=== PATIENT | male | born 1950 | race Caucasian/White ===

== ENCOUNTER 2020-01-24 11:01 | Day surgery (SDC) | payer MEDICARE ==
[2020-01-20 11:05] VITALS: BMI 22.4
[~2020-01-24 11:01] MED LIST: ALPRAZolam 0.25 MG TAB PO PRN; ALPRAZolam 0.5 MG TAB PO PRN; ASPIRIN 325 MG TAB PO STA; ATORVASTATIN 80 MG TAB PO STA; NITROGLYCERIN SL TABS 0.4 MG TAB SUBLINGUAL PRN; SODIUM CHLORIDE 0.9% 1,000 ML in EMPTY BAG 1 BAG IV ONE
[2020-01-24] MEDS ORDERED: IV FLUID CONTINUATION 1,000 ML IV ONE (11:35)
[2020-01-24] MEDS ORDERED: VERAPAMIL 2.5 MG/ML 2 ML AMP ONE (11:43)
[2020-01-24] MEDS ORDERED: LIDOCAINE 1% INJ 10MG/ML (20 ML MDV) ONE (11:43)
[2020-01-24] MEDS ORDERED: HEPARIN SODIUM 1,000 UN/ML (10ML VL) ONE (11:43)
[2020-01-24 11:45] LABS: Basophils % (A) 0 %; Eosinophils # (A) 0.1 k/uL (0-0.7); Eosinophils % (A) 1 %; HCT 33.9 % (39.0-53.0); HGB 11.3 gm/dL (13.0-17.5); Lymphocytes # (A) 0.7 k/uL (1.0-4.8); Lymphocytes % (A) 10 %; MCH 33.7 pg (25.0-35.0); MCHC 33.4 g/dL (31.0-37.0); MCV 100.8 fL (80.0-100.0); Macrocytosis Slight; Mean Platelet Volume 8.5; Monocytes # (A) 0.3 k/uL (0-1.0); Monocytes % (A) 4 %; Neutrophils # (A) 6.6 k/uL (1.3-7.7); Neutrophils % (A) 84 %; Platelet Count 270 k/uL (150-450); RBC 3.37 m/uL (4.30-5.90); RDW 14.1 % (11.5-15.5); WBC 7.8 k/uL (3.8-10.6)
[2020-01-24 11:54] LABS: Calcium 9.8 mg/dL (8.4-10.2); Potassium 4.2 mmol/L (3.5-5.1)
[2020-01-24] MEDS ORDERED: fentaNYL (PF) 50 MCG/ML 2 ML AMP ONE (11:56)
[2020-01-24] MEDS ORDERED: fentaNYL (PF) 50 MCG/ML 2 ML AMP IVP ONE (11:57)
[2020-01-24] MEDS ORDERED: MIDAZOLAM 2 MG/2 ML VIAL IVP ONE (11:57)
[2020-01-24] MEDS ORDERED: LIDOCAINE 1% INJ 10MG/ML (20 ML MDV) SQ ONE (11:58)
[2020-01-24] MEDS ORDERED: VERAPAMIL SYRINGE (5 MG/10 ML) INTRAARTER ONE (12:01)
[2020-01-24] MEDS ORDERED: HEPARIN SODIUM 1,000 UN/ML (10ML VL) IV ONE (12:03)
[2020-01-24] MEDS ORDERED: IOPAMIDOL-370 50ML BTL INJ ONE (12:37)
[2020-01-24] MEDS ORDERED: IOPAMIDOL-370 125ML BTL INJ ONE (12:37)
[2020-01-24] MEDS ORDERED: RX INFO: IV CONTRAST WAS GIVEN 1 EACH MISC MISCELLANE PRN (12:54)
--- NOTE | 2020-01-24 13:14 | P.CARDCATH ---
Date of Procedure: 01/24/20 Description of Procedure: PROCEDURES PERFORMED: Left heart catheterization, left ventriculogram, bilateral coronary angiography INDICATION: Class III angina HISTORY: Patient is a 69-year-old male with history of hyperlipidemia, hypertension who presents for evaluation of chest pain. Patient has been having worsening consistent chest pain with any sort of exertion or the past 3-4 months which he believes is gradually getting worse. He has a history of severe hyperlipidemia with LDL levels in the 700 800 range. He has attributed this to his keto diet in the past. We initially started antianginal medications however he had persistent chest pain with any sort of activity and therefore wanted to undergo heart catheterization rather than stress testing. CONSENT:I have discussed the risks, benefits and alternative therapies for the above-mentioned procedure and for both sedation/analgesia as well as necessary blood product administration, if indicated, as they pertain to this patient. The patient has indicated understanding and acceptance of the risks and procedures discussed. PROCEDURE: After the risks, benefits and alternatives of the above mentioned procedure explained in detail with the patient, informed consent was obtained. Patient was taken to the catheterization lab and prepped and draped in usual fashion. 1% lidocaine was used to anesthetize the right radial artery. A 6- Guamanian sheath was placed in the right radial artery using modified Seldinger technique. Left coronary angiography was performed with a 6-Guamanian CLS 3.0 guide catheter as the FL3.5 and FL 3.0 would not engage properly. Right coronary angiography was performed with a 5-Guamanian JR5 catheter in various views. A 5-Guamanian pigtail catheter was inserted into the left ventricle and pressure measurements were obtained. Left ventriculography was performed in the BAINS projection with a power injection. The right radial sheath was removed and a TR band was placed with hemostasis achieved. The patient tolerated the procedure well. Patient was transported back to the post catheterization holding area in stable condition. Conscious Sedation: Patient was monitored under the direct supervision of vision of myself for conscious sedation using 1 mg Versed and 50 mcg fentanyl for a total duration of 48 minutes HEMODYNAMICS: Ao: 110/56 SELECTIVE CORONARY ARTERIOGRAPHY: LEFT MAIN: The left main is a large caliber vessel which bifurcates into the LAD and circumflex. There is a distal left main 80% stenosis. LEFT ANTERIOR DESCENDING CORONARY ARTERY: LAD is a large caliber vessel which reaches the apex and shares coverage of the apex with the PDA. There is a mid LAD 30% stenosis and a distal 40-50% stenosis. Diagonal 1 is small caliber with diffuse proximal and mid 70% stenosis and diagonal 2 is small caliber with proximal 60% stenosis and mid 70% stenosis. There are left to right collaterals to the PDA. LEFT CIRCUMFLEX CORONARY ARTERY: Left circumflex is a moderate caliber vessel with mid 30% stenosis and gives off a moderate caliber OM1. RIGHT CORONARY ARTERY: The right coronary artery is a large caliber vessel which gives off a PDA and PLV branch and is the dominant vessel. There are tandem 90% proximal 90% mid and 80% distal RCA stenosis. There is a 30% origin PDA cherise nosis however otherwise good target. There is competitive flow in the distal PDA from collaterals. LEFT VENTRICULOGRAPHY: Left ventricular ejection fraction is 45% with global hypokinesis with inferior wall worse hypokinesis. There is no significant mitral regurgitation and no significant gradient with pullback across the aortic valve. FINAL IMPRESSION: 1. Multivessel CAD as described above with 80% left main, 70% small caliber diagonal 1, 70% small caliber diagonal 2, tandem 90% RCA stenoses. 2. Ischemic cardiomyopathy with EF 45% with worsened inferior hypokinesis. 3. Normal left sided pressures PLAN: 1. Aggressive risk factor modification per most recent ACC/AHA guidelines. 2. Discussed with cardiothoracic surgery who will evaluate patient for CABG. Hold Plavix and cardiothoracic recommendations appreciated.
[2020-01-24] MEDS ORDERED: METOPROLOL TARTRATE 25 MG TAB PO STA (14:32)
[2020-01-24] MEDS ORDERED: ISOSORBIDE MONONITRATE ER 30 MG TAB.ER.24H PO STA (14:32)
[2020-01-24] MEDS ORDERED: MD COMMUNICATION TO PHARMACY 1 EACH MISC PO ONE (14:41)
[2020-01-24] MEDS ORDERED: NITROGLYCERIN SL TABS 0.4 MG TAB SUBLINGUAL PRN (14:54)
--- NOTE | 2020-01-24 15:22 | P.GSCN ---
History of Present Illness Consult date: 01/24/20 Reason for Consult: Triple-vessel coronary artery disease with left main disease Requesting physician: Torrey Erickson History of present illness: This is a 69-year-old gentleman who follows on an outpatient basis with nurse practitioner Myriam Hancock. He has a previous medical history of hypertension, significant hyperlipidemia, previous tobacco dependence, and family history of coronary artery disease with father having had coronary artery bypass surgery. He has been experiencing exertional chest pain without shortness of breath over the previous couple of months. He states his activity tolerance has decreased significantly due to chest pain and he is requiring sublingual nitroglycerin several times daily. He presented to [facility] and was seen by Dr. Erickson, he was started on antianginal medication but continued to have chest pain. The patient refused to have stress testing completed and wished to proceed straight to heart catheterization which was completed today. Heart catheterization revealed distal left main stenosis 80%, mid LAD stenosis 30%, distal LAD 40-50% stenosis 70% stenosis in the first diagonal with 60% stenosis in the second diagonal coronary artery with left to right collaterals to the PDA, proximal and mid RCA stenosis 90% with distal RCA stenosis 80%. Left ventriculogram was completed as well reporting ejection fraction 45% with global hypokinesis. Due to these findings consultation was placed to Dr. Beyer from cardiothoracic surgery. Review of Systems Review of systems was completed and was negative except as noted - Constitutional Reports as per HPI, Reports fatigue - Cardiovascular Reports as per HPI, Reports chest pain, Reports decreased exercise tolerance Past Medical History Past Medical History: Coronary Artery Disease (CAD), Chest Pain / Angina, Hyperlipidemia, Hypertension Additional Past Medical History / Comment(s): HX ELEVATED BLOOD SUGAR- WATCHES DIET, STATES "TIGHTNESS" RIGHT NECK, STIFF BACK, NUMBNESS ABOVE RIGHT KNEE., STATES POSSIBLE ANEMIA., LIGHTHEADED "ALL THE TIME", SEE CARDIOLOGY H & P. History of Any Multi-Drug Resistant Organisms: None Reported Additional Past Surgical History / Comment(s): LUMP ON CHEST REMOVED ., COL ONOSCOPY. Past Anesthesia/Blood Transfusion Reactions: No Reported Reaction, Motion Sickness Past Psychological History: No Psychological Hx Reported Smoking Status: Former smoker Past Alcohol Use History: None Reported Additional Past Alcohol Use History / Comment(s): QUIT SMOKING 6 YRS AGO (2013), SMOKED 1 PPD, STARTED SMOKING A TEENAGER. Past Drug Use History: None Reported - Past Family History Mother Family Medical History: Cancer Additional Family Medical History / Comment(s): SKIN CANCER Father Family Medical History: Coronary Artery Disease (CAD) Additional Family Medical History / Comment(s): CABG Sister(s) Family Medical History: Cancer Additional Family Medical History / Comment(s): COLON CANCER Medications and Allergies Home Medications Medication Instructions Recorded Confirmed Type Aspirin [Adult Low Dose Aspirin EC] 81 mg PO HS 01/20/20 01/24/20 History Atorvastatin [Lipitor] 40 mg PO HS 01/20/20 01/24/20 History Calcium 1 dose PO DIRECTED 01/20/20 History Cholecalciferol [Vitamin D3 (25 2,000 unit PO DIRECTED 01/20/20 01/20/20 History Mcg = 1000 Iu)] Ezetimibe [Zetia] 10 mg PO HS 01/20/20 01/24/20 History Isosorbide Mononitrate ER [Imdur] 30 mg PO BID 01/20/20 01/24/20 History Magnesium 1 dose PO DIRECTED 01/20/20 History Metoprolol Tartrate [Lopressor] 25 mg PO BID 01/20/20 01/24/20 History Nitroglycerin Sl Tabs [Nitrostat] 0.4 mg SUBLINGUAL Q5M PRN 01/20/20 01/24/20 History Vitamin C 1 dose PO DIRECTED 01/20/20 History lisinopriL [Zestril] 20 mg PO HS 01/20/20 01/24/20 History Allergies Allergy/AdvReac Type Severity Reaction Status Date / Time No Known Allergies Allergy Verified 01/24/20 11:49 Surgical - Exam Vital Signs Temp Pulse Resp BP Pulse Ox 98 F 55 L 18 153/70 98 01/24/20 11:40 01/24/20 11:40 01/24/20 11:40 01/24/20 11:40 01/24/20 11:40 - General well developed, well nourished, moderate pain - Eyes normal ocular movement - Neck no masses, no bruits, trachea midline - Respiratory Lungs sounds diminished bilaterally. Respirations even, nonlabored. Currently on room air with oxygen saturation 96%. No chest wall deformities. No clubbing or cyanosis present. - Cardiovascular S1, S2 present. Regular rate and rhythm, sinus rhythm on telemetry. Palpable peripheral pulses bilaterally. No edema present. No calf pain or tenderness noted. Positive varicosities noted to bilateral lower extremities. Left radial Agus's test less than 8 seconds. - Abdomen Abdomen: soft, non tender, bowel sounds - Genitourinary Deferred - Rectum Deferred - Integumentary no rash, no growths, no abnormal pigmentation - Neurologic normal coordination, normal sensation - Musculoskeletal normal posture - Psychiatric oriented to time, oriented to person, oriented to place, speech is normal Results - Labs 01/24/20 11:35 01/24/20 11:35 Abnormal Lab Results - Last 24 Hours (Table) 01/24/20 01/24/20 Range/Units 11:35 11:35 RBC 3.37 L (4.30-5.90) m/uL Hgb 11.3 L (13.0-17.5) gm/dL Hct 33.9 L (39.0-53.0) % MCV 100.8 H (80.0-100.0) fL Lymphocytes # 0.7 L (1.0-4.8) k/uL Sodium 128 L (137-145) mmol/L Chloride 96 L (98-107) mmol/L BUN 25 H (9-20) mg/dL Glucose 125 H (74-99) mg/dL Diabetes panel 01/24/20 Range/Units 11:35 Sodium 128 L (137-145) mmol/L Potassium 4.2 (3.5-5.1) mmol/L Chloride 96 L (98-107) mmol/L Carbon Dioxide 26 (22-30) mmol/L BUN 25 H (9-20) mg/dL Creatinine 1.10 (0.66-1.25) mg/dL Glucose 125 H (74-99) mg/dL Calcium 9.8 (8.4-10.2) mg/dL Calcium panel 01/24/20 Range/Units 11:35 Calcium 9.8 (8.4-10.2) mg/dL Pituitary panel 01/24/20 Range/Units 11:35 Sodium 128 L (137-145) mmol/L Potassium 4.2 (3.5-5.1) mmol/L Chloride 96 L (98-107) mmol/L Carbon Dioxide 26 (22-30) mmol/L BUN 25 H (9-20) mg/dL Creatinine 1.10 (0.66-1.25) mg/dL Glucose 125 H (74-99) mg/dL Calcium 9.8 (8.4-10.2) mg/dL Adrenal panel 01/24/20 Range/Units 11:35 Sodium 128 L (137-145) mmol/L Potassium 4.2 (3.5-5.1) mmol/L Chloride 96 L (98-107) mmol/L Carbon Dioxide 26 (22-30) mmol/L BUN 25 H (9-20) mg/dL Creatinine 1.10 (0.66-1.25) mg/dL Glucose 125 H (74-99) mg/dL Calcium 9.8 (8.4-10.2) mg/dL - Imaging Additional studies: Heart catheterization films reviewed with Dr. Beyer Assessment and Plan Assessment: 1. Multi-vessel coronary artery disease with left main disease 2. Hypertension 3. Hyperlipidemia 4. Previous tobacco dependence 5. Family history of coronary artery disease Plan: The patient was seen and examined in the extended stay area with Dr. Beyer. Chart/diagnostics were reviewed. The usual perioperative course of open heart surgery was discussed in detail with the patient, risks and benefits were reviewed, all questions were answered, and the patient did consent to open heart surgery. During our interview the patient stated he was having chest pain, he was asking for sublingual nitroglycerin. Due to his active chest pain and his own admittance that he requires multiple doses of sublingual nitroglycerin daily our recommendation was for the patient to stay inpatient for surgery. He did have Plavix this morning and would need 5-7 days off Plavix prior to surgery to allow for Plavix metabolism. Preoperative testing was initiated. Our plan is for myocardial revascularization with left internal mammary artery, endovascular vein harvest, possible left radial artery harvest, and intraoperative transesophageal echocardiogram to be completed by Dr. Beyer on 01/30/2020 pending the outcome of preoperative testing. Once testing has been completed we will calculate an STS risk score and discuss with the patient. We recommend continuing aspirin, statin, beta kia therapy. Continue to hold Plavix. Medical management of other comorbidities per cardiology, primary care service. More recommendations to follow. Thank you Dr. Erickson for this consult. We look forward to working with you in the care of your patient Time with Patient: Greater than 30
--- NOTE | 2020-01-24 15:34 | XR ---
EXAMINATION TYPE: XR chest 2V DATE OF EXAM: 01/24/2020 COMPARISON: None INDICATION: Preop cardiac surgery TECHNIQUE: Frontal and lateral views of the chest are obtained. FINDINGS: The heart size is normal. The pulmonary vasculature is normal. The lungs are clear. Pectus excavatum of the inferior sternum and xiphoid process may be present. IMPRESSION: 1. No acute pulmonary process. 2. Pectus excavatum of the inferior sternal
--- NOTE | 2020-01-24 16:42 | US ---
EXAMINATION TYPE: US carotid duplex BILAT DATE OF EXAM: 01/24/2020 COMPARISON: NONE CLINICAL HISTORY: Pre-Op Cardiac Surgery . No HTN per patient EXAM MEASUREMENTS: RIGHT: Peak Systolic Velocity (PSV) cm/sec ----- Right CCA: 44.4 ----- Right ICA: 121.0 ----- Right ECA: 151.6 ICA/CCA ratio: 2.7 RIGHT: End Diastole cm/sec ----- Right CCA: 10.4 ----- Right ICA: 48.3 ----- Right ECA: 13.6 LEFT: Peak Systolic Velocity (PSV) cm/sec ----- Left CCA: 80.1 ----- Left ICA: 83.4 ----- Left ECA: 116.1 ICA/CCA ratio: 1.0 LEFT: End Diastole cm/sec ----- Left CCA: 14.1 ----- Left ICA: 38.4 ----- Left ECA: 7.9 VERTEBRALS (direction of flow): Right Vertebral: Antegrade Left Vertebral: Antegrade Rhythm: Normal Bilateral wall thickening. This appears greater on the left. Elevated right ECA velocity. Right ECA stenosis. Small amount of plaque seen in bilateral bulbs. IMPRESSION: Atheromatous plaquing without significant flow-limiting stenosis. Criteria for Assigning % of Stenosis / Diameter reduction (Estimation based on the indirect measurements of the internal carotid artery velocities (ICA PSV). 1. Normal (no stenosis)=ICA PSV < 125 cm/s: ratio < 2.0: ICA EDV<40 cm/s. 2. Less than 50% stenosis=ICA PSV < 125 cm/s: ratio < 2.0: ICA EDV<40 cm/s. 3. 50 to 69% stenosis=ICA PSV of 125 to 230 cm/s: ration 2.0 ? 4.0: ICA EDV 40-100 cm/s. 4. Greater than 70% stenosis to near occlusion= ICA PSV > 230 cm/s: ratio > 4.0: ICA EDV > 100 cm/s. 5. Near occlusion= ICA PSV velocities may be low or undetectable: variable ratio and ICA EDV. 6. Total occlusion=unable to detect flow.
[2020-01-24] MEDS: SODIUM CHLORIDE 0.9% 1,000 ML IV SCH (18:14)
[2020-01-24] MEDS ORDERED: EZETIMIBE 10 MG TAB PO SCH (21:00)
[2020-01-24] MEDS ORDERED: ASPIRIN 81 MG PO SCH (21:00)
[2020-01-24] MEDS ORDERED: lisinopriL 20 MG TAB PO SCH (21:00)
[2020-01-24] MEDS ORDERED: ATORVASTATIN 40 MG TAB PO SCH (21:00)
[2020-01-24] MEDS: ISOSORBIDE MONONITRATE ER 30 MG TAB.ER.24H PO SCH (21:29)
[2020-01-24] MEDS: METOPROLOL TARTRATE 25 MG TAB PO SCH (21:30)
[2020-01-24 22:04] VITALS: RESP 18
[2020-01-25] MEDS: METOPROLOL TARTRATE 25 MG TAB PO SCH ×2 (00:35→08:21)
[2020-01-25] MEDS: SODIUM CHLORIDE 0.9% 1,000 ML IV SCH ×2 (04:11→12:07)
[2020-01-25 06:14] LABS: Appearance,Urine Cloudy (Clear); Bacteria,Urine Rare /hpf; Bilirubin,Urine Negative (Negative); Blood,Urine Negative (Negative); Color,Urine Yellow; Glucose,Urine (UA) Negative (Negative); Ketones,Urine Negative (Negative); Leukocyte Esterase,Urine Large (Negative); Mucus,Urine Rare /hpf; Nitrite,Urine Positive (Negative); Protein,Urine Negative (Negative); RBC,Urine 5 /hpf (0-5); Specific Gravity,Urine 1.021 (1.001-1.035); Squamous Epithelial Cell,Urine <1 /hpf (0-4); Urobilinogen,Urine <2.0 mg/dL (<2.0); WBC,Urine 97 /hpf (0-5)
[2020-01-25 06:51] LABS: Partial Thromboplastin Time 23.1 sec (22.0-30.0); Prothrombin Time 10.1 sec (9.0-12.0)
[2020-01-25 06:57] LABS: Basophils % (A) 0 %; Eosinophils # (A) 0.1 k/uL (0-0.7); Eosinophils % (A) 1 %; HCT 27.4 % (39.0-53.0); Lymphocytes % (A) 15 %; MCH 33.6 pg (25.0-35.0); MCHC 32.8 g/dL (31.0-37.0); MCV 102.2 fL (80.0-100.0); Macrocytosis Slight; Mean Platelet Volume 8.6; Monocytes # (A) 0.4 k/uL (0-1.0); Monocytes % (A) 5 %; Neutrophils # (A) 5.4 k/uL (1.3-7.7); Neutrophils % (A) 78 %; Platelet Count 211 k/uL (150-450); RBC 2.68 m/uL (4.30-5.90); RDW 14.3 % (11.5-15.5); WBC 6.9 k/uL (3.8-10.6)
[2020-01-25 06:58] LABS: Albumin 3.5 g/dL (3.5-5.0); Calcium 8.9 mg/dL (8.4-10.2); Magnesium 1.9 mg/dL (1.6-2.3); Potassium 4.4 mmol/L (3.5-5.1); Total Bilirubin 0.4 mg/dL (0.2-1.3); Total Protein 5.9 g/dL (6.3-8.2)
[2020-01-25] MEDS: ISOSORBIDE MONONITRATE ER 30 MG TAB.ER.24H PO SCH (08:20)
[2020-01-25 08:56] LABS: Glucose,Whole Blood 129 mg/dL (75-99)
[2020-01-25] MEDS ORDERED: CHOLECALCIFEROL 1,000 UNIT TAB PO SCH (09:00)
--- NOTE | 2020-01-25 09:37 | CT ---
EXAMINATION TYPE: CT brain wo con DATE OF EXAM: 01/25/2020 COMPARISON: None HISTORY: difficulty with speech CT DLP: 1108.[address] of the brain was performed. The ventricles, basal cisterns and sulci overlying the cerebral convexities demonstrate mild enlargem ent. There is no evidence for intracranial hemorrhage or sulcal effacement. There is decreased attenuation about the periventricular white matter and deep white matter of both c erebral hemispheres, compatible with chronic small vessel ischemia. Differential diagnosis does inclu de demyelination. No mass effects are seen.No midline shift. Osseous calvarium is intact. If symptoms persist consider MRI. IMPRESSION: 1. Age related atrophic and chronic small vessel ischemic change without acute intracranial process s een at this time.
--- NOTE | 2020-01-25 10:02 | CT ---
EXAMINATION TYPE: CODE STROKE: CTA head neck DATE OF EXAM: 01/25/2020 HISTORY: Difficulty speaking COMPARISON: CT DLP: 484.9 mGycm. Automated Exposure Control for Dose Reduction was Utilized. TECHNIQUE: CTA scan of the neck is performed with IV Contrast, patient injected with 65 mL of Isovue 370, axial images are obtained, coronal and sagittal reformatted images are reviewed. Three-D recons tructed images are created on an independent workstation and reviewed. FINDINGS: Carotid/Vascular Structures: Transverse aorta, left and right common carotid, innominate, left and ri ght subclavian arteries are patent. Left and right vertebral arteries are patent. There is no evident embolus, dissection, or aneurysm. No significant stenosis by NASCET criteria within the proximal int ernal carotid arteries. Within the petrous portion of the internal carotid artery on the left there i s atherosclerotic narrowing. Other: Degenerative disc changes and facet arthropathy noted in the visualized cervical spine. IMPRESSION: Cerebral vascular disease. No evident aneurysm, dissection, or aneurysm..
[2020-01-25 10:36] LABS: Hepatitis A Antibody IgM Non-Reactive (Non-Reactive); Hepatitis B Core IgM Non-Reactive (Non-Reactive); Hepatitis B Surface Antigen Non-Reactive (Non-Reactive); Hepatitis C IgG Antibody Non-Reactive (Non-Reactive)
[2020-01-25 10:42] LABS: Partial Thromboplastin Time 22.4 sec (22.0-30.0); Prothrombin Time 10.1 sec (9.0-12.0)
--- NOTE | 2020-01-25 11:27 | P.CNNES ---
History of Present Illness Consult date: 01/25/20 Requesting physician: Jeffrey Bello Reason for Consult: Stroke for aphasia History of Present Illness: this is a 69-year-old left-handed gentleman with medical history of diabetes type 2, coronary artery disease, significant hyperlipidemia, hypertension, X tobacco use who in [facility] since 01/24/2020 for chest pain. History was obtained from medical records. He has been having exertional chest chest pain without as shortness of breath over the last couple months. His activity tolerances decreased significantly due to the chest pain and requiring sublingual nitroglycerin several times a day. He follows up with the cardiology team and sees a nurse practitioner Myriam Hancock. the patient refused a stress test and he wished to proceed with a heart catheterization was completed on 01/24/2020 around [facility] Per Dr. Torrey Erickson who is a pharmacy general manager he stated that the patient was doing well yesterday just prior to catherization and there was no complication. at and the catheterization showed multivessel coronary artery disease. He stated the patient was verbalizing well and he had that no focal deficits to his knowledge. during the procedure the patient received heparin drip. cardiology team or planning of the having the patient getting a CABG in a couple days. Today around 8:30am on 01/25/2020 the patient was having a aphasia so stroke old was activated. Per the patient nurse she's not sure when his last normal state and possibly could be on 01/24/[address] of the head was done and was reported as age-related atrophic and small vessel ischemic change without acute intracranial process seen at this time. I personally reviewed the CT of the head and there is no acute ischemia, hemorrhage or any the significant encephalomalacia that was appreciable. CT angiogram of the head and neck was done and a showed cerebrovascular disease. No significant aneurysm, dissection or embolus. No significant stenosis by facet criteria within the proximal internal carotid arteries. Within the petrous portion of the internal carotid artery of the left there is atherosclerotic narrowing. Initial NIH by the nurse was felt to be 3. 2 for aphasia and 1 for dysarthria. patient was not an IV TPA candidate since the he recently received heparin drip as well as he is outside the window since last normal states possibly was on 01/24/2020 around [facility]. As well as no endovascular intervention for stroke attending. Of note during the hospital he also had carotid duplex on 01/24/2020 and it was reported as atheromatous plaquing without significant flow limiting stenosis. per cardiology team the patient was on aspirin 81 mg as well as Plavix 75 mg and the patient was on the Zetia 10 mg daily. Plavix was stopped by the cardiology team since they felt that he does not need it and that the CABG is needed. There during the day the patient sister was at bedside and she stated that the patient the has been on ketogenic diet for last 2 years. And that has not been on statins until the last possibly 4 weeks. She also stated that he was started by cardiology on aspirin and Plavix also within the last 4 weeks. Coronary artery disease in his 60s. Review of Systems Limited with pertinent positive and negative per HPI. Past Medical History Past Medical History: Coronary Artery Disease (CAD), Chest Pain / Angina, Hyperlipidemia, Hypertension Additional Past Medical History / Comment(s): HX ELEVATED BLOOD SUGAR- WATCHES DIET, STATES "TIGHTNESS" RIGHT NECK, STIFF BACK, NUMBNESS ABOVE RIGHT KNEE., STATES POSSIBLE ANEMIA., LIGHTHEADED "ALL THE TIME", SEE CARDIOLOGY H & P. History of Any Multi-Drug Resistant Organisms: None Reported Additional Past Surgical History / Comment(s): LUMP ON CHEST REMOVED ., COLONOSCOPY. Past Anesthesia/Blood Transfusion Reactions: No Reported Reaction, Motion Sickness Past Psychological History: No Psychological Hx Reported Smoking Status: Former smoker Past Alcohol Use History: None Reported Additional Past Alcohol Use History / Comment(s): QUIT SMOKING 6 YRS AGO (2013), SMOKED 1 PPD, STARTED SMOKING A TEENAGER. Past Drug Use History: None Reported - Past Family History Mother Family Medical History: Cancer Additional Family Medical History / Comment(s): SKIN CANCER Father Family Medical History: Coronary Artery Disease (CAD) Additional Family Medical History / Comment(s): CABG Sister(s) Family Medical History: Cancer Additional Family Medical History / Comment(s): COLON CANCER Medications and Allergies Home Medications Medication Instructions Recorded Confirmed Type Aspirin [Adult Low Dose Aspirin EC] 81 mg PO HS 01/20/20 01/24/20 History Atorvastatin [Lipitor] 40 mg PO HS 01/20/20 01/24/20 History Calcium 1 dose PO DIRECTED 01/20/20 History Cholecalciferol [Vitamin D3 (25 2,000 unit PO DIRECTED 01/20/20 01/20/20 History Mcg = 1000 Iu)] Ezetimibe [Zetia] 10 mg PO HS 01/20/20 01/24/20 History Isosorbide Mononitrate ER [Imdur] 30 mg PO BID 01/20/20 01/24/20 History Magnesium 1 dose PO DIRECTED 01/20/20 History Metoprolol Tartrate [Lopressor] 25 mg PO BID 01/20/20 01/24/20 History Nitroglycerin Sl Tabs [Nitrostat] 0.4 mg SUBLINGUAL Q5M PRN 01/20/20 01/24/20 History Vitamin C 1 dose PO DIRECTED 01/20/20 History lisinopriL [Zestril] 20 mg PO HS 01/20/20 01/24/20 History Allergies Allergy/AdvReac Type Severity Reaction Status Date / Time No Known Allergies Allergy Verified 01/24/20 11:49 Physical Examination - Vital Signs Vital Signs: Vital Signs Temp Pulse Pulse Resp BP BP Pulse Ox 01/25/20 08:23 98.4 F 59 L 16 111/76 99 01/25/20 04:13 98.0 F 53 L 18 110/54 94 L 01/25/20 00:00 98.3 F 78 18 115/50 98 01/24/20 20:00 97.8 F 58 L 58 L 18 115/54 100 01/24/20 16:50 99.0 F 64 16 125/58 98 01/24/20 16:00 63 18 131/63 91 L 01/24/20 15:00 67 18 116/58 91 L 01/24/20 14:00 76 18 133/60 91 L 01/24/20 13:45 78 18 112/54 91 L 01/24/20 13:30 64 18 118/62 91 L 01/24/20 13:15 66 18 124/66 91 L 01/24/20 13:00 91 18 130/64 91 L 01/24/20 11:40 98 F 55 L 18 153/70 161/70 98 Intake and Output 01/24/20 01/25/20 01/25/20 22:59 06:59 14:59 Intake Total 240 Balance 240 Intake: Oral 240 Other: Voiding Method Toilet Toilet # Voids 1 2 1 # Bowel Movements 1 Weight 68.946 kg 68.7 kg GENERAL: The patient is lying in bed and is not in acute distress. CHEST: The heart rate is regular rate rhythm. No murmurs to auscultation. No carotid bruit bilaterally. LUNG: Clear to auscultation bilaterally no wheezing noted throughout. Not labored breathing. ABDOMEN/GI: Bowel sounds present in all 4 quadrants. No tenderness to palpation throughout. NEUROLOGICAL: Higher mental function: The patient is awake, alert, oriented to self, place and time. Patient is following simple commands. Positive expressive aphasia. Positive paraphrasic errors. No neglect. Cranial nerves: The pupils are round (4mm bilaterally), equal and reactive to light and accommodation. Visual salcedo are hard to assess because of the patient cooperation but he seems right field deficit, seems right homonymous hemianopsia. Extraocular movement is intact no nystagmus is noted. Facial sensation is normal to touch throughout. The facial strength is normal throughout. Hearing is normal bilaterally to hand rub. Tongue is midline and moved [id number] without any difficulty. No dysarthria is noted. Shoulder shrug is normal bilaterally. Motor: Gait is defered. The strength is 5 over 5 throughout. Normal tone and bulk. Cerebellum: Normal finger to nose bilaterally. Sensation: Sensation is normal to touch throughout. Reflexes (right/left): 2+ throughout. Plantars are downgoing bilaterally. NIH Stroke Scale Score: Level of consciousness 0 LOC questions 0 LOC commands 0 Best gaze 0 Visual salcedo 2 Facial palsy 0 Left motor arm 0 Right motor arm 0 Left motor leg 0 Right motor leg 0 Limb ataxia 0 Sensory 0 Best language 2 Dysarthria 0 Extinction and inattention 0 Total NIHSS score:4 Results on initial presentation the patient's sodium was 128 on repeated is 132. AST of 118 ALTs of 22. Lipid profile is a triglyceride of 124, cholesterol 434 LDL is 359 and HDL of 50. TSH is 1.610. Coagulation study on presentation was PT of 10.1, INR of 1.0 and PTT is 23.1. urine analysis the urine appears cloudy, urine nitrates is positive and leukocyte Estrace was large urine 1 blood cell is 97. - Laboratory Findings CBC and BMP: 01/25/20 06:19 01/25/20 06:19 Abnormal Lab Findings: Abnormal Labs 01/24/20 01/24/20 01/24/20 11:35 11:35 11:35 RBC 3.37 L Hgb 11.3 L Hct 33.9 L MCV 100.8 H Lymphocytes # 0.7 L Sodium 128 L Chloride 96 L BUN 25 H Glucose 125 H POC Glucose (mg/dL) AST Total Protein Cholesterol 578 H LDL Cholesterol, Calc Ur Leukocyte Esterase Urine WBC Urine Bacteria Urine Mucus 01/25/20 01/25/20 01/25/20 05:54 06:19 06:19 RBC 2.68 L Hgb 9.0 L D Hct 27.4 L MCV 102.2 H Lymphocytes # Sodium 132 L Chloride BUN 26 H Glucose 113 H POC Glucose (mg/dL) AST 118 H Total Protein 5.9 L Cholesterol 434 H LDL Cholesterol, Calc 359 H Ur Leukocyte Esterase Large H Urine WBC 97 H Urine Bacteria Rare H Urine Mucus Rare H 01/25/20 08:55 RBC Hgb Hct MCV Lymphocytes # Sodium Chloride BUN Glucose POC Glucose (mg/dL) 129 H AST Total Protein Cholesterol LDL Cholesterol, Calc Ur Leukocyte Esterase Urine WBC Urine Bacteria Urine Mucus Assessment and Plan Assessment: Expressive aphasia and visual field deficit (right homonymous Hemianopsia) like ly due to acute ischemic stroke (left MCA stroke). Seems embolic from a cardiac cath. Multivessel coronary artery disease Chest pain due to multivessel coronary artery disease Significant hyperlipidemia hypercholesterolemia urinary tract infection Hypertension X tobacco use Plan: CT of the head was done and was reported as age-related atrophic and small vessel ischemic change without acute intracranial process seen at this time. I personally reviewed the CT of the head and there is no acute ischemia, hemorrhage or any the significant encephalomalacia that was appreciable. CT angiogram of the head and neck was done and a showed cerebrovascular disease. No significant aneurysm, dissection or embolus. No significant stenosis by facet criteria within the proximal internal carotid arteries. Within the petrous portion of the internal carotid artery of the left there is atherosclerotic narrowing. Initial NIH by the nurse was felt to be 3. 2 for aphasia and 1 for dysarthria. Upon my NIH it was 4 for expressive aphasia and right homonymous hemianopsia. Patient was not an IV TPA candidate since the he recently received heparin drip as well as he is outside the window since last normal states possibly was on 2019 around [facility]. As well as no endovascular intervention for stroke attending. Recommend MRI of the brain, repeat the 2-D echo, repeating Coagulation study continue aspirin 81 daily for secondary stroke prophylaxis. Recommend the Plavix 75 mg for 21 days then the Plavix can be discontinued If is safe prior to the procedure (CABG). Per cardiology don't feel the need of Plavix and they feel that the patient just needs a CABG and. Recommend placing the patient on the Lipitor 80 mg daily. He is on Zetia 10 mg from cardiology perspective. Per the patient's sister the patient was on ketogenic diet for 2 years and was recently started on statin in the last 1 month. Recommend hemoglobin A1c Lipid profile is a triglyceride of 124, cholesterol 434 LDL is 359 and HDL of 50. No need to repeat. Continue cardiac monitoring. PT, OT and speech therapy are consulted. regarding the urinary tract infection will defer to the primary team. Regarding the patient chest pain in the multilevel coronary artery disease we'll defer to the cardiology team. The plan was discussed with the cardiology team. Thank you for the consultation. Marcelino Sherwood M.D. Neuro-hospitalist Time with Patient: Greater than 30
--- NOTE | 2020-01-25 11:40 | P.CONS ---
History of Present Illness - Reason for Consult Altered mental status, familial hyperlipidemia, stroke, hyponatremia - History of Present Illness This is a 19-year-old male is being evaluate for coronary artery bypass grafting patient underwent cardiac catheterization yesterday which showed active muscle disease. Patient is confused today patient headache expressive aphasia which was noticed today morning code stroke was called and the patient had a CT of the head did not show any acute abnormality CT angiogram the head and neck showed some cerebral vascular disease but beyond that no acute abnormality was appreciated on that either. Patient had a net score of 42. Patient is definitely confused and does have expressive aphasia. Patient is scheduled for a coronary artery bypass grafting in couple days. Patient is bit hyponatremic as well patient has decreased EF of around 45-50% patient is bit hypovolemic and patient is receiving IV fluids which I believe is appropriate. Consider neurology and the patient will undergo MRI. Neurology is recommending aspirin as well as Plavix for 21 days. Review of Systems REVIEW OF SYSTEMS: All other review of systems are negative except those mentioned above patient is a poor historian because of his confusion Past Medical History Past Medical History: Coronary Artery Disease (CAD), Chest Pain / Angina, Hyperlipidemia, Hypertension Additional Past Medical History / Comment(s): HX ELEVATED BLOOD SUGAR- WATCHES DIET, STATES "TIGHTNESS" RIGHT NECK, STIFF BACK, NUMBNESS ABOVE RIGHT KNEE., STATES POSSIBLE ANEMIA., LIGHTHEADED "ALL THE TIME", SEE CARDIOLOGY H & P. History of Any Multi-Drug Resistant Organisms: None Reported Additional Past Surgical History / Comment(s): LUMP ON CHEST REMOVED ., COL ONOSCOPY. Past Anesthesia/Blood Transfusion Reactions: No Reported Reaction, Motion Sickness Past Psychological History: No Psychological Hx Reported Smoking Status: Former smoker Past Alcohol Use History: None Reported Additional Past Alcohol Use History / Comment(s): QUIT SMOKING 6 YRS AGO (2013), SMOKED 1 PPD, STARTED SMOKING A TEENAGER. Past Drug Use History: None Reported - Past Family History Mother Family Medical History: Cancer Additional Family Medical History / Comment(s): SKIN CANCER Father Family Medical History: Coronary Artery Disease (CAD) Additional Family Medical History / Comment(s): CABG Sister(s) Family Medical History: Cancer Additional Family Medical History / Comment(s): COLON CANCER Medications and Allergies Home Medications Medication Instructions Recorded Confirmed Type Aspirin [Adult Low Dose Aspirin EC] 81 mg PO HS 01/20/20 01/24/20 History Atorvastatin [Lipitor] 40 mg PO HS 01/20/20 01/24/20 History Calcium 1 dose PO DIRECTED 01/20/20 History Cholecalciferol [Vitamin D3 (25 2,000 unit PO DIRECTED 01/20/20 01/20/20 History Mcg = 1000 Iu)] Ezetimibe [Zetia] 10 mg PO HS 01/20/20 01/24/20 History Isosorbide Mononitrate ER [Imdur] 30 mg PO BID 01/20/20 01/24/20 History Magnesium 1 dose PO DIRECTED 01/20/20 History Metoprolol Tartrate [Lopressor] 25 mg PO BID 01/20/20 01/24/20 History Nitroglycerin Sl Tabs [Nitrostat] 0.4 mg SUBLINGUAL Q5M PRN 01/20/20 01/24/20 History Vitamin C 1 dose PO DIRECTED 01/20/20 History lisinopriL [Zestril] 20 mg PO HS 01/20/20 01/24/20 History Allergies Allergy/AdvReac Type Severity Reaction Status Date / Time No Known Allergies Allergy Verified 01/24/20 11:49 Physical Exam Vitals: Vital Signs Temp Pulse Pulse Resp BP BP Pulse Ox 01/25/20 08:23 98.4 F 59 L 16 111/76 99 01/25/20 04:13 98.0 F 53 L 18 110/54 94 L 01/25/20 00:00 98.3 F 78 18 115/50 98 01/24/20 20:00 97.8 F 58 L 58 L 18 115/54 100 01/24/20 16:50 99.0 F 64 16 125/58 98 01/24/20 16:00 63 18 131/63 91 L 01/24/20 15:00 67 18 116/58 91 L 01/24/20 14:00 76 18 133/60 91 L 01/24/20 13:45 78 18 112/54 91 L 01/24/20 13:30 64 18 118/62 91 L 01/24/20 13:15 66 18 124/66 91 L 01/24/20 13:00 91 18 130/64 91 L 01/24/20 11:40 98 F 55 L 18 153/70 161/70 98 Intake and Output 01/24/20 01/25/20 01/25/20 22:59 06:59 14:59 Intake Total 240 Balance 240 Intake: Oral 240 Other: Voiding Method Toilet Toilet # Voids 1 2 1 # Bowel Movements 1 Weight 68.946 kg 68.7 kg PHYSICAL EXAMINATION: GENERAL: The patient is alert and oriented x2, not in any acute distress. Well developed, well nourished. HEENT: Pupils are round and equally reacting to light. EOMI. No scleral icterus. No conjunctival pallor. Normocephalic, atraumatic. No pharyngeal erythema. No thyromegaly. CARDIOVASCULAR: S1 and S2 present. No murmurs, rubs, or gallops. PULMONARY: Chest is clear to auscultation, no wheezing or crackles. ABDOMEN: Soft, nontender, nondistended, normoactive bowel sounds. No palpable organomegaly. MUSCULOSKELETAL: No joint swelling or deformity. EXTREMITIES: No cyanosis, clubbing, or pedal edema. NEUROLOGICAL: he does have expressive aphasia mild SKIN: No rashes. Results CBC & Chem 7: 01/25/20 06:19 01/25/20 06:19 Labs: Abnormal Lab Results - Last 24 Hours (Table) 01/24/20 01/24/20 01/24/20 Range/Units 11:35 11:35 11:35 RBC 3.37 L (4.30-5.90) m/uL Hgb 11.3 L (13.0-17.5) gm/dL Hct 33.9 L (39.0-53.0) % MCV 100.8 H (80.0-100.0) fL Lymphocytes # 0.7 L (1.0-4.8) k/uL Sodium 128 L (137-145) mmol/L Chloride 96 L (98-107) mmol/L BUN 25 H (9-20) mg/dL Glucose 125 H (74-99) mg/dL POC Glucose (mg/dL) (75-99) mg/dL AST (17-59) U/L Total Protein (6.3-8.2) g/dL Cholesterol 578 H (<200) mg/dL LDL Cholesterol, Calc (0-99) mg/dL Ur Leukocyte Esterase (Negative) Urine WBC (0-5) /hpf Urine Bacteria (None) /hpf Urine Mucus (None) /hpf 01/25/20 01/25/20 01/25/20 Range/Units 05:54 06:19 06:19 RBC 2.68 L (4.30-5.90) m/uL Hgb 9.0 L D (13.0-17.5) gm/dL Hct 27.4 L (39.0-53.0) % MCV 102.2 H (80.0-100.0) fL Lymphocytes # (1.0-4.8) k/uL Sodium 132 L (137-145) mmol/L Chloride (98-107) mmol/L BUN 26 H (9-20) mg/dL Glucose 113 H (74-99) mg/dL POC Glucose (mg/dL) (75-99) mg/dL AST 118 H (17-59) U/L Total Protein 5.9 L (6.3-8.2) g/dL Cholesterol 434 H (<200) mg/dL LDL Cholesterol, Calc 359 H (0-99) mg/dL Ur Leukocyte Esterase Large H (Negative) Urine WBC 97 H (0-5) /hpf Urine Bacteria Rare H (None) /hpf Urine Mucus Rare H (None) /hpf 01/25/20 Range/Units 08:55 RBC (4.30-5.90) m/uL Hgb (13.0-17.5) gm/dL Hct (39.0-53.0) % MCV (80.0-100.0) fL Lymphocytes # (1.0-4.8) k/uL Sodium (137-145) mmol/L Chloride (98-107) mmol/L BUN (9-20) mg/dL Glucose (74-99) mg/dL POC Glucose (mg/dL) 129 H (75-99) mg/dL AST (17-59) U/L Total Protein (6.3-8.2) g/dL Cholesterol (<200) mg/dL LDL Cholesterol, Calc (0-99) mg/dL Ur Leukocyte Esterase (Negative) Urine WBC (0-5) /hpf Urine Bacteria (None) /hpf Urine Mucus (None) /hpf Microbiology - Last 24 Hours (Table) 01/25/20 05:54 Urine Culture - Preliminary Urine,Catheterized 01/24/20 20:19 Nasal Screen MRSA/MSSA - Preliminary Nasal Swab Assessment and Plan Plan: -Altered mental status: 10 be toxic encephalopathy from medications and Xanax was discontinued it can be related to stroke and aphasia. Continue with antiplatelet therapy. -Coronary artery disease or, multivessel disease patient will undergo coronary artery bypass grafting. -Possible familial hyperlipidemia patient is a statin and that her patient may need injectable medications for his hyperlipidemia -Hypertension -Nicotine abuse -hyponatremia probably hypotonic hyponatremia IV fluids are appropriate and will recheck the sodium to -Asymptomatic bacteriuria. UA is not consistent with UTI do not recommend any antibiotics at this time -Congestive heart failure systolic dysfunction unsure whether it's acute or chronic but patient is not in acute exacerbation. The systolic dysfunction is probably secondary to ischemic cardiomyopathy
--- NOTE | 2020-01-25 11:56 | P.PN ---
Subjective Progress Note Date: 01/25/20 Principal diagnosis: Symptomatic multivessel coronary artery disease, ischemic cardiomyopathy with left ventricular ejection fraction 45% with global hypokinesia, with the inferior wall worse hypokinesia, Class III angina. Past medical history significant for hypertension, significant hyperlipidemia, previous tobacco dependence, and family history of coronary artery disease with father having had coronary artery bypass surgery. The patient was seen in follow-up today 01/25/2020 at his bedside on the cardiac stepdown unit. The patient is resting in bed with his head elevated and is in no acute apparent distress. The patient was very vague in answering questions regarding his chest pain and other symptoms. When asked if he was having any further episodes of chest pain he responded, well as a matter or speaking. He as confused and was unable to state his address, date of , current month or year. He was having difficulty completing a complete sentence without stumbling on his words. The patient also reports that he feels like he knows what he needs to say but can't. Subsequently a code stroke was initiated. The patient's bedside nurse reports he was up ambulating to the bathroom and was quite confused when up to the bathroom. Once he was in the bathroom the nurse reports he was unsure of why he was there. He denies any complaints of weakness,visual disturbances, dizziness, presyncope or syncope. Remote telemetry showing sinus bradycardia heart rate 46. Objective - Vital Signs Vital signs: Vital Signs Temp 98.4 F 01/25/20 08:23 Pulse 59 L 01/25/20 08:23 Resp 18 01/25/20 08:23 BP 111/76 01/25/20 08:23 Pulse Ox 99 01/25/20 08:23 Intake & Output 01/24/20 01/25/20 01/25/20 18:59 06:59 18:59 Intake Total 550 240 Balance 550 240 Weight 68.946 kg 68.7 kg Intake: IV 550 Oral 240 Other: Voiding Method Toilet Toilet # Voids 1 2 1 # Bowel Movements 1 - Constitutional General appearance: Present: average body habitus, cooperative, no acute distress - EENT Eyes: Present: PERRLA, normal appearance. Absent: scleral icterus ENT: Present: hearing grossly normal - Neck Details: Neck is supple, no JVD, no lymphadenopathy. - Respiratory Details: Lung sounds essentially clear throughout, diminished to his bilateral bases. No wheezes, rhonchi or crackles. Respirations are symmetrical and nonlabored. - Cardiovascular Details: Regular rhythm with a bradycardic rate. S1 and S2 present, negative for S3, gallop or murmur. Remote telemetry showing sinus bradycardia heart rate 46. No edema present. - Gastrointestinal Gastrointestinal Comment(s): Abdomen is soft, nontender and nondistended. Active bowel sounds present in all 4 abdominal quadrants. No guarding or rigidity. No organomegaly appreciated. - Genitourinary Genitourinary Comment(s): Continues to void. - Integumentary Integumentary Comment(s): skin is warm and dry. No clubbing or cyanosis is present. Few scattered ecchymotic areas to his bilateral upper extremities. - Neurologic Neurologic Comment(s): Trouble forming a complete sentence. No visual disturbances. - Musculoskeletal Musculoskeletal: Present: gait normal, strength equal bilaterally - Psychiatric Psychiatric Comment(s): Unable to state the year, month, day or location. Psychiatric: Present: appropriate affect - Allied health notes Allied health notes reviewed: nursing - Labs CBC & Chem 7: 01/25/20 06:19 01/25/20 06:19 Labs: Abnormal Lab Results - Last 24 Hours (Table) 01/24/20 01/24/20 01/24/20 Range/Units 11:35 11:35 11:35 RBC 3.37 L (4.30-5.90) m/uL Hgb 11.3 L (13.0-17.5) gm/dL Hct 33.9 L (39.0-53.0) % MCV 100.8 H (80.0-100.0) fL Lymphocytes # 0.7 L (1.0-4.8) k/uL Sodium 128 L (137-145) mmol/L Chloride 96 L (98-107) mmol/L BUN 25 H (9-20) mg/dL Glucose 125 H (74-99) mg/dL POC Glucose (mg/dL) (75-99) mg/dL AST (17-59) U/L Total Protein (6.3-8.2) g/dL Cholesterol 578 H (<200) mg/dL LDL Cholesterol, Calc (0-99) mg/dL Ur Leukocyte Esterase (Negative) Urine WBC (0-5) /hpf Urine Bacteria (None) /hpf Urine Mucus (None) /hpf 01/25/20 01/25/20 01/25/20 Range/Units 05:54 06:19 06:19 RBC 2.68 L (4.30-5.90) m/uL Hgb 9.0 L D (13.0-17.5) gm/dL Hct 27.4 L (39.0-53.0) % MCV 102.2 H (80.0-100.0) fL Lymphocytes # (1.0-4.8) k/uL Sodium 132 L (137-145) mmol/L Chloride (98-107) mmol/L BUN 26 H (9-20) mg/dL Glucose 113 H (74-99) mg/dL POC Glucose (mg/dL) (75-99) mg/dL AST 118 H (17-59) U/L Total Protein 5.9 L (6.3-8.2) g/dL Cholesterol 434 H (<200) mg/dL LDL Cholesterol, Calc 359 H (0-99) mg/dL Ur Leukocyte Esterase Large H (Negative) Urine WBC 97 H (0-5) /hpf Urine Bacteria Rare H (None) /hpf Urine Mucus Rare H (None) /hpf 01/25/20 Range/Units 08:55 RBC (4.30-5.90) m/uL Hgb (13.0-17.5) gm/dL Hct (39.0-53.0) % MCV (80.0-100.0) fL Lymphocytes # (1.0-4.8) k/uL Sodium (137-145) mmol/L Chloride (98-107) mmol/L BUN (9-20) mg/dL Glucose (74-99) mg/dL POC Glucose (mg/dL) 129 H (75-99) mg/dL AST (17-59) U/L Total Protein (6.3-8.2) g/dL Cholesterol (<200) mg/dL LDL Cholesterol, Calc (0-99) mg/dL Ur Leukocyte Esterase (Negative) Urine WBC (0-5) /hpf Urine Bacteria (None) /hpf Urine Mucus (None) /hpf Microbiology - Last 24 Hours (Table) 01/24/20 20:19 Nasal Screen MRSA/MSSA - Preliminary Nasal Swab - Imaging and Cardiology carotid duplex study and vein mapping results reviewed. Assessment and Plan Assessment: 1. Multi-vessel coronary artery disease with left main disease 2. Ischemic cardiomyopathy with left ventricular ejection fraction of 45% with global hypokinesia 3. Expressive aphasia, possible acute ischemic stroke 4. Class III angina 5. Hypertension 6. Hyperlipidemia 7. Previous tobacco dependence 8. Family history of coronary artery disease Plan: 1. Continue aspirin, statin, and Beta kia. 2. Encourage incentive spirometry use 10 times every hour while awake. 3. Medical management of other comorbidities per primary care service, cardiology. 4. Neurology consulted, code stroke, expressive aphasia. 5. Our plan is for myocardial revascularization with left internal mammary artery, endovascular vein harvest, possible left radial artery harvest, and intraoperative transesophageal echocardiogram to be completed by Dr. Beyer on 01/30/2020 pending the outcome of his preoperative testing. 6. Once his preoperative testing has been completed a STS risk score will be calculated and discussed with the patient. 7. 5 m walk test pending, unable to obtain at this time due to code stroke in progress. 8. More recommendations to follow based on patient's clinical course. Time with Patient: Greater than 30
--- NOTE | 2020-01-25 14:25 | P.CNPUL ---
<Tawanna Corrales M - Last Filed: 01/25/20 13:50> History of Present Illness Consult date: 01/25/20 Requesting physician: Torrey Erickson Chief complaint: Preop CABG History of present illness: 69-year-old white male patient with past medical history of hypertension, significant hyperlipidemia, former tobacco dependence, family history of mio nary artery disease, who has been having symptoms of chest pain on an outpatient basis for last several months. Patient was seen on an outpatient basis by Dr. Erickson from [facility], and was recommended to have a stress test, however the patient refused a stress test and he came in for elective heart catheterization on 01/24/2020 which showed multivessel coronary artery disease, with 80% stenosis in the left main, 70% small-caliber diagonal, 70% small-caliber diagonal 2, and tandem 90% RCA stenosis. His LV function was mildly impaired with EF of 45%. Patient was referred to cardiothoracic surgery for possibility of coronary artery revascularization surgery. Today on 10/2019 patient started experiencing symptoms of dysarthria, expressive aphasia, and code stroke was activated. His initial NIH score was 3, neurology evaluation is underway, stat brain CT showed age-related atrophic and chronic small vessel ischemic changes without acute intracranial process. Angiography CT showed cerebrovascular disease no evident aneurysm, dissection or aneurysm. Carotid Doppler showed atheromatous plaque without significant flow limiting stenosis. Upon evaluation patient is resting in bed, he is on room air, with a pulse ox of 99%, hemodynamically stable, his breathing is nonlabored, he is being evaluated by neurology, he still having some trouble finding words, no ob vious facial asymmetry, strength is equal bilaterally. 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 His lab work is reviewed, showing white blood cell count of 7.8, hemoglobin of 11.3, sodium was low on admission at 128, potassium is 4.2, chloride was 96, CO2 is 26, BUN is 25, creatinine is 1.10, urinalysis showed large amount of leuks, and white blood cells with the possibility of urinary tract infection, patient has been afebrile, urine culture is pending, negative thus far. Preop PFT is pending. Review of Systems All systems: negative Constitutional: Denies chills, Denies fever Eyes: denies blurred vision, denies pain Ears, nose, mouth and throat: Denies headache, Denies sore throat Cardiovascular: Denies chest pain, Denies shortness of breath Respiratory: Denies cough Gastrointestinal: Denies abdominal pain, Denies diarrhea, Denies nausea, Denies vomiting Musculoskeletal: Denies myalgias Integumentary: Denies pruritus, Denies rash Neurological: Reports aphasia, Reports change in mentation, Reports change in speech, Denies numbness, Denies weakness Psychiatric: Denies anxiety, Denies depression Endocrine: Denies fatigue, Denies weight change Past Medical History Past Medical History: Coronary Artery Disease (CAD), Chest Pain / Angina, Hyperlipidemia, Hypertension Additional Past Medical History / Comment(s): HX ELEVATED BLOOD SUGAR- WATCHES DIET, STATES "TIGHTNESS" RIGHT NECK, STIFF BACK, NUMBNESS ABOVE RIGHT KNEE., STATES POSSIBLE ANEMIA., LIGHTHEADED "ALL THE TIME", SEE CARDIOLOGY H & P. History of Any Multi-Drug Resistant Organisms: None Reported Additional Past Surgical History / Comment(s): LUMP ON CHEST REMOVED ., COLONOSCOPY. Past Anesthesia/Blood Transfusion Reactions: No Reported Reaction, Motion Sickness Past Psychological History: No Psychological Hx Reported Smoking Status: Former smoker Past Alcohol Use History: None Reported Additional Past Alcohol Use History / Comment(s): QUIT SMOKING 6 YRS AGO (2013), SMOKED 1 PPD, STARTED SMOKING A TEENAGER. Past Drug Use History: None Reported - Past Family History Mother Family Medical History: Cancer Additional Family Medical History / Comment(s): SKIN CANCER Father Family Medical History: Coronary Artery Disease (CAD) Additional Family Medical History / Comment(s): CABG Sister(s) Family Medical History: Cancer Additional Family Medical History / Comment(s): COLON CANCER Medications and Allergies Home Medications Medication Instructions Recorded Confirmed Type Aspirin [Adult Low Dose Aspirin EC] 81 mg PO HS 01/20/20 01/24/20 History Atorvastatin [Lipitor] 40 mg PO HS 01/20/20 01/24/20 History Calcium 1 dose PO DIRECTED 01/20/20 History Cholecalciferol [Vitamin D3 (25 2,000 unit PO DIRECTED 01/20/20 01/20/20 History Mcg = 1000 Iu)] Ezetimibe [Zetia] 10 mg PO HS 01/20/20 01/24/20 History Isosorbide Mononitrate ER [Imdur] 30 mg PO BID 01/20/20 01/24/20 History Magnesium 1 dose PO DIRECTED 01/20/20 History Metoprolol Tartrate [Lopressor] 25 mg PO BID 01/20/20 01/24/20 History Nitroglycerin Sl Tabs [Nitrostat] 0.4 mg SUBLINGUAL Q5M PRN 01/20/20 01/24/20 History Vitamin C 1 dose PO DIRECTED 01/20/20 History lisinopriL [Zestril] 20 mg PO HS 01/20/20 01/24/20 History Allergies Allergy/AdvReac Type Severity Reaction Status Date / Time No Known Allergies Allergy Verified 01/24/20 11:49 Physical Exam Vitals: Vital Signs Temp Pulse Pulse Resp BP Pulse Ox 01/25/20 08:23 98.4 F 59 L 16 111/76 99 01/25/20 04:13 98.0 F 53 L 18 110/54 94 L 01/25/20 00:00 98.3 F 78 18 115/50 98 01/24/20 20:00 97.8 F 58 L 58 L 18 115/54 100 01/24/20 16:50 99.0 F 64 16 125/58 98 01/24/20 16:00 63 18 131/63 91 L 01/24/20 15:00 67 18 116/58 91 L 01/24/20 14:00 76 18 133/60 91 L Intake and Output 01/24/20 01/25/20 01/25/20 22:59 06:59 14:59 Intake Total 240 472 Balance 240 472 Intake: Oral 240 472 Other: Voiding Method Toilet Toilet # Voids 1 2 2 # Bowel Movements 1 Weight 68.946 kg 68.7 kg GENERAL EXAM: Alert, very pleasant, 69-year-old white male, resting in bed, searching for words, no obvious facial asymmetry, strength is equal bilaterally, comfortable in no apparent distress. HEAD: Normocephalic/atraumatic. EYES: Normal reaction of pupils, equal size. Conjunctiva pink, sclera white. NOSE: Clear with pink turbinates. THROAT: No erythema or exudates. NECK: No masses, no JVD, no thyroid enlargement, no adenopathy. CHEST: No chest wall deformity. Symmetrical expansion. LUNGS: Equal air entry with no crackles, wheeze, rhonchi or dullness. CVS: Regular rate and rhythm, normal S1 and S2, no gallops, no murmurs, no rubs ABDOMEN: Soft, nontender. No hepatosplenomegaly, normal bowel sounds, no guarding or rigidity. EXTREMITIES: No clubbing, no edema, no cyanosis, 2+ pulses and upper and lower extremities. MUSCULOSKELETAL: Muscle strength and tone normal. SPINE: No scoliosis or deformity SKIN: No rashes CENTRAL NERVOUS SYSTEM: Alert and oriented -3. No focal deficits, tone is normal in all 4 extremities. PSYCHIATRIC: Alert and oriented -3. Appropriate affect. Intact judgment and insight. Results - Laboratory Findings CBC and BMP: 01/25/20 06:19 01/25/20 06:19 PT/INR, D-dimer PT 10.1 sec (9.0-12.0) 01/25/20 10:10 INR 1.0 (<1.2) 01/25/20 10:10 Abnormal lab findings: Abnormal Labs 01/24/20 01/24/20 01/24/20 11:35 11:35 11:35 RBC 3.37 L Hgb 11.3 L Hct 33.9 L MCV 100.8 H Lymphocytes # 0.7 L Sodium 128 L Chloride 96 L BUN 25 H Glucose 125 H POC Glucose (mg/dL) AST Total Protein Cholesterol 578 H LDL Cholesterol, Calc Ur Leukocyte Esterase Urine WBC Urine Bacteria Urine Mucus 01/25/20 01/25/20 01/25/20 05:54 06:19 06:19 RBC 2.68 L Hgb 9.0 L D Hct 27.4 L MCV 102.2 H Lymphocytes # Sodium 132 L Chloride BUN 26 H Glucose 113 H POC Glucose (mg/dL) AST 118 H Total Protein 5.9 L Cholesterol 434 H LDL Cholesterol, Calc 359 H Ur Leukocyte Esterase Large H Urine WBC 97 H Urine Bacteria Rare H Urine Mucus Rare H 01/25/20 08:55 RBC Hgb Hct MCV Lymphocytes # Sodium Chloride BUN Glucose POC Glucose (mg/dL) 129 H AST Total Protein Cholesterol LDL Cholesterol, Calc Ur Leukocyte Esterase Urine WBC Urine Bacteria Urine Mucus - Diagnostic Findings Chest x-ray: report reviewed, image reviewed Assessment and Plan Plan: #1. Multivessel coronary artery disease, with 80% left main stenosis, 70% in the diagonal one, 70% diagonal 2, and 90% tandem RCA stenosis. Awaiting surgical evaluation for possibility of coronary artery bypass grafting #2. Ischemic cardiomyopathy with EF of 45% #3. Expressive aphasia, dysarthria, possibly related to acute ischemic stroke, neurology is following. #4. Chest pain related to coronary artery disease #5. Significant hyperlipidemia #6. Hypercholesterolemia #7. Urinary tract infection, urine cultures pending #8. Hypertension #9. Former tobacco use Plan: Patient is undergoing neurological evaluation, from pulmonary perspective patient is stable, hemodynamically patient is stable, chest x-ray showed no acute pulmonary process. We'll review the preop FEV1 once is completed. Patient seems to be clinically stable to remain on selective care unit, he is awaiting surgical evaluation for possibility of bypass grafting. We'll continue to follow I performed a history & physical examination of the patient and discussed their management with my nurse practitioner, Tawanna Corrales. I reviewed the nurse practitioner's note and agree with the documented findings and plan of care. Lung sounds are positive for diminished breath sounds. The findings and the impression was discussed with the patient. I attest to the documentation by the nurse practitioner. Time with Patient: Greater than 30 <Kendra Sung - Last Filed: 01/25/20 15:59> Physical Exam Vitals: Vital Signs Temp Pulse Pulse Resp BP Pulse Ox 01/25/20 12:00 98.3 F 68 16 106/45 98 01/25/20 08:23 98.4 F 59 L 16 111/76 99 01/25/20 04:13 98.0 F 53 L 18 110/54 94 L 01/25/20 00:00 98.3 F 78 18 115/50 98 01/24/20 20:00 97.8 F 58 L 58 L 18 115/54 100 01/24/20 16:50 99.0 F 64 16 125/58 98 01/24/20 16:00 63 18 131/63 91 L Intake and Output 01/25/20 01/25/20 01/25/20 06:59 14:59 22:59 Intake Total 240 472 Balance 240 472 Intake: Oral 240 472 Other: Voiding Method Toilet Toilet # Voids 2 1 # Bowel Movements 1 Weight 68.7 kg Results - Laboratory Findings CBC and BMP: 01/25/20 06:19 10/07/20 06:19 PT/INR, D-dimer PT 10.1 sec (9.0-12.0) 01/25/20 10:10 INR 1.0 (<1.2) 01/25/20 10:10 Abnormal lab findings: Abnormal Labs 01/24/20 01/24/20 01/24/20 11:35 11:35 11:35 RBC 3.37 L Hgb 11.3 L Hct 33.9 L MCV 100.8 H Lymphocytes # 0.7 L Sodium 128 L Chloride 96 L BUN 25 H Glucose 125 H POC Glucose (mg/dL) AST Total Protein Cholesterol 578 H LDL Cholesterol, Calc Ur Leukocyte Esterase Urine WBC Urine Bacteria Urine Mucus 01/25/20 01/25/20 01/25/20 05:54 06:19 06:19 RBC 2.68 L Hgb 9.0 L D Hct 27.4 L MCV 102.2 H Lymphocytes # Sodium 132 L Chloride BUN 26 H Glucose 113 H POC Glucose (mg/dL) AST 118 H Total Protein 5.9 L Cholesterol 434 H LDL Cholesterol, Calc 359 H Ur Leukocyte Esterase Large H Urine WBC 97 H Urine Bacteria Rare H Urine Mucus Rare H 01/25/20 08:55 RBC Hgb Hct MCV Lymphocytes # Sodium Chloride BUN Glucose POC Glucose (mg/dL) 129 H AST Total Protein Cholesterol LDL Cholesterol, Calc Ur Leukocyte Esterase Urine WBC Urine Bacteria Urine Mucus
[2020-01-25 14:48] LABS: Hemoglobin A1C 5.4 % (4.0-6.0)
[2020-01-25] MEDS ORDERED: LORazepam 2 MG/ML INJ IV STA (15:23)
[2020-01-25] MEDS ORDERED: LORazepam 2 MG/ML INJ IV PRN (15:26)
--- NOTE | 2020-01-25 17:02 | P.PN ---
Subjective Progress Note Date: 01/25/20 HISTORY OF PRESENTING ILLNESS Patient is a pleasant 69-year-old male with history of hypertension, hyperlip idemia, prior tobacco abuse who presented for outpatient heart catheterization yesterday. He has been having increasing angina-type symptoms with chest pain and shortness breath. He has had extremely elevated cholesterol levels in the past with total cholesterol and the 800 at 900 range which he has blamed on a previous keto diet. He underwent left heart catheterization yesterday which she appeared to tolerate well however this morning was noted to be somewhat confused with some expressive aphasia. Therefore code stroke was called. Yesterday patient had been complaining of chest pain which was resolved with nitroglycerin. Patient seen and examined this morning. Patient does have diff iculty with coming up with words. He additionally was seen at lunchtime with his sister and had difficulty feeding himself with difficulty maneuvering his silverware. REVIEW OF SYSTEMS At the time of my exam: CONSTITUTIONAL: Denies fever or chills. CARDIOVASCULAR: No chest pain this morning, no shortness of breath, orthopnea, PND or palpitations. RESPIRATORY: Denies cough. GASTROINTESTINAL: Denies abdominal pain, diarrhea, constipation, nausea or vomiting. MUSCULOSKELETAL: Denies myalgias. NEUROLOGIC: + Expressive aphasia ENDOCRINE: Denies fatigue, weight change, polydipsia or polyurina. GENITOURINARY: Denies burning, hematuria or urgency with micturation. HEMATOLOGIC: Denies history of anemia or bleeding. PHYSICAL EXAMINATION Blood pressure 106/45 heart rate 65 afebrile and maintaining oxygen saturation on room air. CONSTITUTIONAL: No apparent distress, confused with some expressive aphasia HEENT: Head is normocephalic. Pupils are equal, round. Sclerae anicteric. Mucous membranes of the mouth are moist. No JVD. No carotid bruit. CHEST EXAMINATION: Lungs are clear to auscultation. No chest wall tenderness is noted on palpation or with deep breathing. HEART EXAMINATION: Regular rate and rhythm. S1, S2 heard. No murmurs, gallops or rub. ABDOMEN: Soft, nontender. Positive bowel sounds. EXTREMITIES: 2+ peripheral pulses, no lower extremity edema and no calf tenderness. NEUROLOGIC EXAMINATION: Patient is awake, alert, + expressive aphasia ASSESSMENT 1. Multivessel coronary artery disease with 80% left main, 70% diagonal 1, 70% diagonal to, 90% RCA stenosis. 2. Stable coronary artery disease however vision has been occasionally having chest pain at rest or "when his heart rate gets above 70 bpm". 3. New-onset expressive aphasia, likely acute stroke related to heart catheterization. Likely related to plaque embolization. 4. Hyperlipidemia with improvement in total cholesterol from 800s down to 434 with LDL of 359. 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 Patient will likely need a PCSK9 inhibitor in addition to his home Lipitor 80 mg daily and his Zetia . 5. Cardiomyopathy with ejection fraction 45% by left ventriculogram PLAN Neurology recommendations appreciated. We will continue to hold Plavix for possible CABG for his multivessel coronary artery disease. Patient has been fairly stable outpatient however he was having some chest pain at rest more concerning for unstable angina. Check 2-D echo. Further workup per cardiothoracic surgery and neurology. Objective - Vital Signs Vital signs: Vital Signs Temp 98.3 F 01/25/20 12:00 Pulse 68 01/25/20 12:00 Resp 18 01/25/20 12:00 BP 106/45 01/25/20 12:00 Pulse Ox 98 01/25/20 12:00 Intake & Output 01/24/20 01/25/20 01/25/20 18:59 06:59 18:59 Intake Total 550 240 472 Balance 550 240 472 Weight 68.946 kg 68.7 kg Intake: IV 550 Oral 240 472 Other: Voiding Method Toilet Toilet # Voids 1 2 1 # Bowel Movements 1 - Labs CBC & Chem 7: 01/25/20 06:19 01/25/20 06:19 Labs: Abnormal Lab Results - Last 24 Hours (Table) 01/24/20 01/25/20 01/25/20 Range/Units 11:35 05:54 06:19 RBC 2.68 L (4.30-5.90) m/uL Hgb 9.0 L D (13.0-17.5) gm/dL Hct 27.4 L (39.0-53.0) % MCV 102.2 H (80.0-100.0) fL Sodium (137-145) mmol/L BUN (9-20) mg/dL Glucose (74-99) mg/dL POC Glucose (mg/dL) (75-99) mg/dL AST (17-59) U/L Total Protein (6.3-8.2) g/dL Cholesterol 578 H (<200) mg/dL LDL Cholesterol, Calc (0-99) mg/dL Ur Leukocyte Esterase Large H (Negative) Urine WBC 97 H (0-5) /hpf Urine Bacteria Rare H (None) /hpf Urine Mucus Rare H (None) /hpf 01/25/20 01/25/20 Range/Units 06:19 08:55 RBC (4.30-5.90) m/uL Hgb (13.0-17.5) gm/dL Hct (39.0-53.0) % MCV (80.0-100.0) fL Sodium 132 L (137-145) mmol/L BUN 26 H (9-20) mg/dL Glucose 113 H (74-99) mg/dL POC Glucose (mg/dL) 129 H (75-99) mg/dL AST 118 H (17-59) U/L Total Protein 5.9 L (6.3-8.2) g/dL Cholesterol 434 H (<200) mg/dL LDL Cholesterol, Calc 359 H (0-99) mg/dL Ur Leukocyte Esterase (Negative) Urine WBC (0-5) /hpf Urine Bacteria (None) /hpf Urine Mucus (None) /hpf Microbiology - Last 24 Hours (Table) 01/25/20 05:54 Urine Culture - Preliminary Urine,Catheterized 01/24/20 20:19 Nasal Screen MRSA/MSSA - Preliminary Nasal Swab
[2020-01-25 18:41] LABS: Glucose,Whole Blood 165 mg/dL (75-99)
[2020-01-25] MEDS ORDERED: HEPARIN SODIUM,PORCINE 5,000 UNIT/ML 1 ML VIAL IV ONE (19:19)
[2020-01-25] MEDS ORDERED: HEPARIN SODIUM,PORCINE 5,000 UNIT/ML 1 ML VIAL IV PRN (19:19)
[2020-01-25] MEDS ORDERED: HEPARIN SOD,PORK IN 0.45% NACL 25,000 UNIT in 0.45% NACL 1 250ML.BAG IV SCH (19:30)
--- NOTE | 2020-01-25 19:37 | ECHOF ---
Referral Reason:preop cabg, assess LV, valves MEASUREMENTS -------- HEIGHT: 175.3 cm WEIGHT: 68.9 kg BP: 133/60 RVIDd: 3.1 cm (< 3.3) IVSd: 0.9 cm (0.6 - 1.1) LVIDd: 5.1 cm (3.9 - 5.3) LVPWd: 1.2 cm (0.6 - 1.1) IVSs: 1.5 cm LVIDs: 3.5 cm LVPWs: 1.8 cm LA Diam: 3.7 cm (2.7 - 3.8) LAESV Index (A-L): 41.60 ml/m Ao Diam: 3.5 cm (2.0 - 3.7) AV Cusp: 2.2 cm (1.5 - 2.6) MV EXCURSION: 18.414 mm (> 18.000) MV EF SLOPE: 100 mm/s (70 - 150) EPSS: 0.5 cm MV E Bashir: 1.08 m/s MV DecT: 307 ms MV A Bashir: 0.96 m/s MV E/A Ratio: 1.12 RAP: 15.00 mmHg RVSP: 41.48 mmHg FINDINGS -------- Sinus rhythm. This was a technically good study. The left ventricular size is normal. There is borderline concentric left ventricular hypertrophy. Overall left ventricular systolic function is moderately impaired with, an EF between 35 - 40 %. A pical anterior LV wall motion is hypokinetic. Apical inferior LV wall motion is hypokinetic. Ap ical septum LV wall motion is hypokinetic. The right ventricle is normal in size. LA is severely dilated >40 ml/m2 The right atrium is normal in size. Interatrial and interventricular septum intact. There is mild aortic valve sclerosis. The mitral valve leaflets are mildly thickened. Mild mitral annular calcification present. Modera te mitral regurgitation is present. Mild tricuspid regurgitation present. There is mild pulmonary hypertension. The right ventricular systolic pressure, as measured by Doppler, is 41.48mmHg. Trace/mild (physiologic) pulmonic regurgitation. The aortic root size is normal. Normal inferior vena cava with normal inspiratory collapse consistent with estimated right atrial pre ssure of 5 mmHg. There is no pericardial effusion. CONCLUSIONS -------- 1. The left ventricular size is normal. 2. There is borderline concentric left ventricular hypertrophy. 3. Overall left ventricular systolic function is moderately impaired with, an EF between 35 - 40 %. 4. Apical anterior LV wall motion is hypokinetic. 5. Apical inferior LV wall motion is hypokinetic. 6. Apical septum LV wall motion is hypokinetic. 7. LA is severely dilated >40 ml/m2 8. The mitral valve leaflets are mildly thickened. 9. Mild mitral annular calcification present. 10. Moderate mitral regurgitation is present. 11. Mild tricuspid regurgitation present. 12. There is mild pulmonary hypertension. 13. The right ventricular systolic pressure, as measured by Doppler, is 41.48mmHg. 14. Trace/mild (physiologic) pulmonic regurgitation. 15. There is no pericardial effusion. COMPUTER PROGRAMMER CHIEF: NOHEMI Antony
--- NOTE | 2020-01-25 19:50 | ECHOF ---
Referral Reason:compare to previous MEASUREMENTS -------- HEIGHT: 175.3 cm WEIGHT: 68.5 kg BP: IVSd: 1.1 cm (0.6 - 1.1) LVIDd: 5.6 cm (3.9 - 5.3) LVPWd: 1.1 cm (0.6 - 1.1) IVSs: 1.4 cm LVIDs: 3.9 cm LVPWs: 1.7 cm LA Diam: 5.5 cm (2.7 - 3.8) MV E Bashir: 0.70 m/s MV DecT: 223 ms MV A Bashir: 0.85 m/s MV E/A Ratio: 0.82 RAP: 5.00 mmHg RVSP: 19.92 mmHg FINDINGS -------- Pt Had Echo 04/25/19: Repeat Echo 01/25/20. Pt had a cva 01/24/20 and is not compliant. Overall left ventricular systolic function is moderate-severely impaired with, an EF between 30 - 35 %. Apical inferior LV wall motion is hypokinetic. Apical septum LV wall motion is hypokinetic. Anna Hypokinesis. There is no pericardial effusion. CONCLUSIONS -------- 1. Pt Had Echo 04/25/19: Repeat Echo 01/25/20. 2. Pt had a cva 01/24/20 and is not compliant. 3. Overall left ventricular systolic function is moderate-severely impaired with, an EF between 30 - 35 %. 4. Apical inferior LV wall motion is hypokinetic. 5. Apical septum LV wall motion is hypokinetic. 6. Anna Hypokinesis. 7. There is no pericardial effusion. VENDING TECHNICIAN: Brittany Bishop RDCS
[2020-01-25] MEDS ORDERED: ATORVASTATIN 80 MG TAB PO SCH (21:00)
[2020-01-25 21:37] LABS: Glucose,Whole Blood 192 mg/dL (75-99)
--- NOTE | 2020-01-25 22:18 | P.EN ---
69 year old male admitted for ACS found to have triple vessel disease, with plan for CABG next week, his hospital course was complicated with acute stroke. homar diop was called on this patient due to PEA cardiopulmonary arrest cardiopulmonary resuscitation per ACLS protocol , please refer to paper chart for full details patient was initially in PEA, then was intubated, shocked for Vfib, he was given epi, amiodarone, bicarb, lidocaine bolus ( patient admitted for ACS and found to have triple vessel disease, with plan for CABG next week) , and calcium resuscitation continued for 30 minutes without achieving ROSC patient was pronounced , panel monitor showing acystole , no heart sounds were audible family notified, I spoke with patient sister over the phone and answered her questions primary team paged await call back
--- NOTE | 2020-01-25 22:57 | MR ---
EXAMINATION TYPE: MR brain wo con DATE OF EXAM: 01/25/2020 COMPARISON: CT brain 01/25/2020. CTA head and neck 01/25/2020. HISTORY: Neuro deficit changes, aphasia. Status post heart catheterization 01/23/2020. TECHNIQUE: Multiplanar, multisequence images of the brain and brainstem is performed without without intravenous contrast. FINDINGS: Diffusion weighted images demonstrate several subcentimeter scattered infratentorial and carreon pratentorial areas of restricted diffusion within the white matter and hassan matter, for example withi n the left cerebellum (205:80), left parietal lobe (205:152), and bilateral frontoparietal lobes (205 :200). Some of these areas demonstrate T2 and T2 FLAIR hyperintense signal. Several additional areas of T2 FLAIR hyperintense signal are also seen scattered throughout, predominantly periventricular. Th ere is also questionable subtle asymmetric gyriform restricted diffusion of the left temporal lobe (2 05:144), to a much lesser degree than the other scattered subcentimeter areas of restricted diffusion . No significant edema or mass effect. No midline shift. No extra-axial fluid collection. The ventricul ar system and cisternal spaces are normal in size and appearance. The brain volume is age appropriat e. Midline structures demonstrate normal morphology. The craniocervical junction appears within normal limits. There is mucosal thickening of the left maxillary sinus. The globes are grossly symmetric. IMPRESSION: 1. Several subcentimeter scattered white matter and hassan matter infratentorial and supratentorial are as of restricted diffusion bilaterally, with corresponding T2 FLAIR hyperintense signal. Distribution does not follow vascular territory. Several other areas of T2 FLAIR hyperintense signal are seen, pr edominantly periventricular. Primary differential includes microembolic acute infarcts, and less like ly demyelinating disease with areas of active demyelination. 2. Subtle asymmetric gyriform restricted diffusion of the left temporal lobe, to a much lesser degree than the other areas of restricted diffusion. Findings are borderline and may be artifactual. Dr. Rachana Prieto discussed findings with Georgina Nguyen RN 01/25/2020 at 10:50 PM, and results were acknowledged. Georgina Nguyen RN states she had already spoken with Dr. Marcelino Sherwood who was aware of MRI findings.
[2020-01-26 01:30] VITALS: BP 95/56; PULSE 86; TEMP 98.2
--- NOTE | 2020-01-26 03:34 | P.PN ---
Progress Note - Text Progress Note Date: 01/26/20 Late entry: Initially paged by nursing for new onset of SOB and hypoxia when patient was up from bed. Patient had been receiving IVF throughout morning, after contrast from cath and CTA and while patient was NPO for stroke workup earlier 01/24. EKG from 01/25/2020 reviewed and patient with new Q wave with minor ST elevation only in lead [address] depressions. Patient had been very consistent with chest pain and angina as an outpt and per nursing, patient denied any chest pain tonight, only SOB. Consideration was that patient had suffered [place] over 01/23 night as he was having some chest pain 01/23, possibly with severity and duration of symptoms minimized or missed due to his acute stroke and expressive aphasia. Given his absence of chest pain 01/24, Q wave with mild elevation only in one lead, decision was made to treat as possible NSTEMI and heparin drip was ordered with serial troponins ordered. Hypoxia was felt possibly due to component of heart failure and therefore IVF were stopped. I was then later notified of patient going into cardiac arrest without ROSC. Torrey Erickson DO
--- NOTE | 2020-01-26 11:01 | P.ARTDOP ---
Arterial Doppler LOWER EXTREMITY ARTERIAL DOPPLER: DATE OF SERVICE: 01/24/2020 Reason for study: Preop CABG. Doppler waveforms: Multiphasic to the posterior tibial on the right. Dorsalis pedis is monophasic. Multiphasic at the left femoral, atypical at the popliteal and posterior tibial, and monophasic at the dorsalis pedis. Toe waveforms are moderately blunted. Pulse volume recording: []. Pressure gradients: Above the low thigh on the left and across the knee. Mild gradient across the knee on the right.. Ankle-brachial indices: 0.9 on the right and 0.55 on the left. Toe brachial indices: 0.5 on the right, 0.31 on the left Impression: Mild right fem-pop disease. Moderate left fem-pop disease. Tissue perfusion probably adequate for healing. Clinical correlation suggested..
--- NOTE | 2020-01-26 11:03 | P.VSCSTY ---
Greater Saphenous Vein Mapping This is bilateral lower extremity greater saphenous vein mapping. Date of service: 01/24/2020 Vein quality and ultrasound appearance: We see no intraluminal thrombus or wall changes. Vein size groin right : 6.0 x 5.2 groin left: 5.1 x 5.5 High thigh right: 3.5 x 2.9 high thigh left: 4.1 x 4.0 Mid thigh right: 3.8 x 2.8 3.7 x 3.1 mid thigh left: [ ] Above-knee right: 3.8 x 3.5 above-knee left: 3.6 x 3.2 Below knee right: 3.2 x 2.3 below-knee left: 3.3 x 2.5 Mid calf right: 2.9 x 1.8 mid calf left: 2.7 x 1.9 Ankle right: 4.0 x 2.5 ankle left: 2.9 x 2.4 Impression: Usable bilateral greater saphenous vein. A bit small in mid calf bilaterally..
== END 2020-01-25 21:52 | disposition expired ==
LOC: CATHCVL 11:01 → 3SCARD 16:30 → CATHCVL 01-25 21:52
PROVIDERS: ATTEND Internal Medicine
DX: I63.512 Cerebral infarction due to unspecified occlusion or stenosis of left middle cerebral artery (principal); R47.01 Aphasia; G92 Toxic encephalopathy; T42.4X5A Adverse effect of benzodiazepines, initial encounter; H53.461 Homonymous bilateral field defects, right side; E86.1 Hypovolemia; E87.1 Hypo-osmolality and hyponatremia; M25.60 Stiffness of unspecified joint, not elsewhere classified; R20.0 Anesthesia of skin; I25.119 Atherosclerotic heart disease of native coronary artery with unspecified angina pectoris; I11.0 Hypertensive heart disease with heart failure; I50.20 Unspecified systolic (congestive) heart failure; E78.49 Other hyperlipidemia; E78.00 Pure hypercholesterolemia, unspecified; E11.65 Type 2 diabetes mellitus with hyperglycemia; R41.82 Altered mental status, unspecified; Z82.49 Family history of ischemic heart disease and other diseases of the circulatory system; R42 Dizziness and giddiness; Z98.890 Other specified postprocedural states; Z80.8 Family history of malignant neoplasm of other organs or systems; Z87.891 Personal history of nicotine dependence; Z80.0 Family history of malignant neoplasm of digestive organs; I25.5 Ischemic cardiomyopathy; I27.20 Pulmonary hypertension, unspecified; I34.0 Nonrheumatic mitral (valve) insufficiency; I65.21 Occlusion and stenosis of right carotid artery; I67.82 Cerebral ischemia; Z79.82 Long term (current) use of aspirin; Z79.899 Other long term (current) drug therapy; Z79.02 Long term (current) use of antithrombotics/antiplatelets; Q67.6 Pectus excavatum; R09.89 Other specified symptoms and signs involving the circulatory and respiratory systems; R29.818 Other symptoms and signs involving the nervous system; R47.1 Dysarthria and anarthria
CPT/HCPCS: 93306; 93005; 93458; 80061; 80053; 80048; 80074; 84443; 82465; 83735; 84484; 85025 ×2; 85610; 85730; 81001; 87070; 87086; 83036; 71046; 93930; 93970; 93922; 93923; 93880; 70496; 70450; 70498; 70551; C8929; C1887; C1769; C1894; J2250; J2060; J1644 ×3; J2001; J3010; Q9950; Q9967 ×3